=== PATIENT | male | born 1980 | race American Indian/Alaskan Native ===

== ENCOUNTER 2016-05-23 12:21 | Emergency (ER) | payer SELFPAY ==
[2016-05-23 12:37] VITALS: BP 115/77
[2016-05-23 13:01] LABS: Basophils % (Auto) 0.7 % (0.0-1.8); Eosinophils % (Auto) 1.6 % (0.0-4.3); Hematocrit 42.5 % (35.5-45.6); Hemoglobin 13.8 gm/dl (11.8-15.2); Mean Corpuscular HGB Conc 32 % (32-34); Mean Corpuscular Hemoglobin 29 pg (28-32); Mean Corpuscular Volume 90 fl (84-94); Platelet Count 250 K/mm3 (140-440); Red Blood Count 4.74 M/mm3 (3.65-5.03); Red Cell Distribution Width 13.6 % (13.2-15.2); White Blood Count 3.4 K/mm3 (4.5-11.0)
[2016-05-23 13:19] LABS: Anion Gap 15 mmol/L; BUN/Creatinine Ratio 8.88; Blood Urea Nitrogen 8 mg/dL (9-20); Calcium 8.9 mg/dL (8.4-10.2); Carbon Dioxide 27 mmol/L (22-30); Chloride 103.2 mmol/L (98-107); Glucose 85 mg/dL (75-100); Potassium 4.4 mmol/L (3.6-5.0); Sodium 141 mmol/L (137-145)
--- NOTE | 2016-05-24 15:28 | ED Elopement Review ---
ED Pt Elopement review - Results review Lab results: Laboratory Tests 05/23/16 05/23/16 12:47 12:47 WBC 3.4 L RBC 4.74 Hgb 13.8 Hct 42.5 MCV 90 MCH 29 MCHC 32 RDW 13.6 Plt Count 250 Lymph % (Auto) 46.1 H [place] % (Auto) 6.3 Eos % (Auto) 1.6 Baso % (Auto) 0.7 Lymph # 1.6 [place] # 0.2 Eos # 0.1 Baso # 0.0 Seg Neutrophils % 45.3 Seg Neutrophils # 1.5 L Sodium 141 Potassium 4.4 Chloride 103.2 Carbon Dioxide 27 Anion Gap 15 BUN 8 L Creatinine 0.9 Estimated GFR > 60 BUN/Creatinine Ratio 8.88 Glucose 85 Calcium 8.9 Troponin T < 0.010 - Call Back decision Pt Call Back Decision: No action required
== END 2016-05-23 16:30 | disposition left against medical advice (07) ==
LOC: ED 12:21
DX: R07.89 Other chest pain (principal); M25.512 Pain in left shoulder; M54.9 Dorsalgia, unspecified; Z53.21 Procedure and treatment not carried out due to patient leaving prior to being seen by health care provider
CPT/HCPCS: 36415; 80048; 84484; 85025; 93005; 93010

== ENCOUNTER 2017-05-15 14:32 | Emergency (ER) | payer SELFPAY ==
[2017-05-15 14:37] VITALS: BP 116/66
== END 2017-05-15 17:50 | disposition home or self-care (01) ==
LOC: ED 14:32
DX: J00 Acute nasopharyngitis [common cold] (principal); Z53.21 Procedure and treatment not carried out due to patient leaving prior to being seen by health care provider

== ENCOUNTER 2018-01-16 10:48 | Emergency (ER) | payer SELFPAY ==
[2018-01-16 11:34] VITALS: BP 101/74
--- NOTE | 2018-01-16 12:22 | Emergency Department Report ---
ED ENT HPI - General Chief complaint: Sore Throat Stated complaint: STD CHECK/SWOLLEN GLANDS Source: patient Mode of arrival: Ambulatory Limitations: No Limitations - History of Present Illness Initial comments: This is a 37-year-old -[place] male who presents for evaluation of possible oral STD exposure. Patient states he had oral intercourse 3-4 times with a new partner for 2 months. He is now complaining of sore throat and swollen glands. Patient states partner recently diagnosed with gonorrhea and chlamydia he is concerned of possibly having oral gonorrhea. Denies difficulty swallowing, thrush, penile discharge, testicular pain or swelling, frequency, urgency and dysuria. MD complaint: sore throat Onset/Timin -: week(s) Location: throat Severity: moderate Severity scale (0 -10): 5 Quality: other (throbbing) Consistency: constant Improves with: none Worsens with: swallowing, eating Associated Symptoms: pain with swallowing, sore throat - Related Data Home Medications Medication Instructions Recorded Confirmed Last Taken No Known Home Medications [No 05/23/16 05/23/16 Unknown Reported Home Medications] Allergies Allergy/AdvReac Type Severity Reaction Status Date / Time No Known Allergies Allergy Verified 05/23/16 12:31 ED Dental HPI - General Chief complaint: Sore Throat Stated complaint: STD CHECK/SWOLLEN GLANDS Source: patient Mode of arrival: Ambulatory Limitations: No Limitations - Related Data Home Medications Medication Instructions Recorded Confirmed Last Taken No Known Home Medications [No 05/23/16 05/23/16 Unknown Reported Home Medications] Allergies Allergy/AdvReac Type Severity Reaction Status Date / Time No Known Allergies Allergy Verified 05/23/16 12:31 ED Review of Systems ROS: Stated complaint: STD CHECK/SWOLLEN GLANDS Other details as noted in HPI Constitutional: denies: chills, fever ENT: throat pain. denies: ear pain, dental pain, hearing loss, epistaxis, congestion Respiratory: denies: cough, shortness of breath, wheezing Cardiovascular: denies: chest pain, palpitations Gastrointestinal: denies: abdominal pain, nausea, diarrhea Skin: denies: rash, lesions Neurological: denies: headache, weakness, paresthesias Psychiatric: denies: anxiety, depression ED Past Medical Hx - Past Medical History Additional medical history: Leukopenia, afib - Surgical History Past Surgical History?: No - Social History Smoking Status: Current Every Day Smoker Substance Use Type: Marijuana - Medications Home Medications: Home Medications Medication Instructions Recorded Confirmed Last Taken Type No Known Home Medications [No 05/23/16 05/23/16 Unknown History Reported Home Medications] ED Physical Exam - General Limitations: No Limitations General appearance: alert, in no apparent distress - ENT ENT exam: Present: mucous membranes moist, TM's normal bilaterally, normal external ear exam. Absent: normal orophraynx (erythematous posterior pharynx, uvula midline, no exudate or tonsillar enlargement) - Neck Neck exam: Present: normal inspection - Respiratory Respiratory exam: Present: normal lung sounds bilaterally. Absent: respiratory distress - Cardiovascular Cardiovascular Exam: Present: regular rate, normal rhythm. Absent: systolic murmur, diastolic murmur, rubs, gallop - GI/Abdominal GI/Abdominal exam: Present: soft, normal bowel sounds - Neurological Exam Neurological exam: Present: alert, oriented X3 - Psychiatric Psychiatric exam: Present: normal affect, normal mood - Skin Skin exam: Present: warm, dry, intact, normal color. Absent: rash ED Course Vital Signs 01/16/18 11:25 Temperature 98.7 F Pulse Rate 66 Respiratory 16 Rate Blood Pressure 101/74 Blood Pressure 101/74 [Right] O2 Sat by Pulse 98 Oximetry ED Medical Decision Making - Medical Decision Making This is a 37-year-old -[place] male who presents with sore throat for 1 week. Recent exposure to gonorrhea and chlamydia. Patient was examined by me. Vitals are stable and in no acute distress. No labs ordered. Empirically treated with Rocephin 250 mg IM and azithromycin 1 g by mouth. Discharged home in stable condition. Discussed prevention options. F/U with PCP or Health Department. Critical care attestation.: If time is entered above; I have spent that time in minutes in the direct care of this critically ill patient, excluding procedure time. ED Disposition Clinical Impression: STD exposure Disposition: DC-01 TO HOME OR SELFCARE Is pt being admited?: No Does the pt Need Aspirin: No Condition: Stable Instructions: Sexually Transmitted Diseases (ED), Safe Sex (ED) Additional Instructions: Avoid drinking alcohol for 24 hours. Continue safe sexual intercourse. Follow up with Primary Care Provider or health department. Referrals: [facility] [Outside] - 3-5 Days [facility] [Outside] - 3-5 Days [facility] [Outside] - 3-5 Days Time of Disposition: 12:26 Print Language: MALTESE
[2018-01-16] MEDS ORDERED: XYLOCAINE 1% MPF 5 mL INFILTRATI ONE (12:26)
[2018-01-16] MEDS ORDERED: ZITHROMAX PO ONE (12:26)
[2018-01-16] MEDS ORDERED: ROCEPHIN IM ONE (12:26)
== END 2018-01-16 12:38 | disposition home or self-care (01) ==
LOC: ED 10:48
DX: Z20.2 Contact with and (suspected) exposure to infections with a predominantly sexual mode of transmission (principal); F17.200 Nicotine dependence, unspecified, uncomplicated; F12.10 Cannabis abuse, uncomplicated; I48.91 Unspecified atrial fibrillation
CPT/HCPCS: 96372; 99282; J0696

== ENCOUNTER 2018-01-30 12:06 | Emergency (ER) | payer SELFPAY ==
[2018-01-30 12:15] VITALS: BP 117/68
== END 2018-01-30 18:47 ==
LOC: ED 12:06
DX: J02.9 Acute pharyngitis, unspecified (principal); Z53.21 Procedure and treatment not carried out due to patient leaving prior to being seen by health care provider

== ENCOUNTER 2021-03-10 16:22 | Emergency (ER) | payer SELFPAY ==
[2021-03-10 16:34] VITALS: BP 137/80
--- NOTE | 2021-03-10 17:11 | Emergency Department Report ---
ED General Adult HPI - General Chief complaint: Sore Throat Stated complaint: SORE THROAT Time Seen by Provider: 03/10/21 16:31 Source: patient Mode of arrival: Ambulatory Limitations: No Limitations - History of Present Illness Initial comments: 40-year-old -[place] male patient presents with complaints of mild throat irritation and hoarseness for the past 2 days. Patient states his symptoms began after having an argument with his and yelling a great deal. He states the pain is very minimal and feels more like irritation and scratch iness. He states he is more concerned with the hoarseness of his voice. He has not tried any OTC medications for his symptoms. He also denies any cough, fever/chills/sweats, rash, chest pain, shortness of breath, or loss of taste or smell. Severity scale (0 -10): 10 - Related Data Previous Rx's Medication Instructions Recorded Last Taken Type Phenazopyridine [Pyridium] 200 mg PO TID #6 tab 01/21/18 Unknown Rx Naproxen [Naprosyn] 500 mg PO BID PRN #20 tablet 02/06/18 Unknown Rx Famotidine 20 mg PO BID 30 Days #60 tablet 03/23/18 Unknown Rx Acetaminophen [Non-Aspirin Pain 1,000 mg PO QID PRN #20 tablet 03/10/21 Unknown Rx Relief] Nystas/Diphen/Xyl Visc/Mylanta 10 ml MM Q6H PRN 7 Days #120 ml 03/10/21 Unknown Rx [Magic Mouthwash] Allergies Allergy/AdvReac Type Severity Reaction Status Date / Time No Known Allergies Allergy Verified 03/23/18 10:49 ED Review of Systems ROS: Stated complaint: SORE THROAT Other details as noted in HPI Constitutional: denies: chills, diaphoresis, fever, malaise, weakness ENT: throat pain Cardiovascular: denies: chest pain Gastrointestinal: denies: abdominal pain, nausea, vomiting Genitourinary: denies: urgency, dysuria, frequency, hematuria, discharge, testicular pain, testicular mass Musculoskeletal: denies: back pain Skin: denies: rash, lesions Neurological: denies: numbness ED Past Medical Hx - Past Medical History Previous Medical History?: Yes Additional medical history: Leukopenia, afib - Surgical History Past Surgical History?: No - Social History Smoking Status: Never Smoker Substance Use Type: Marijuana - Medications Home Medications: Home Medications Medication Instructions Recorded Confirmed Last Taken Type Phenazopyridine [Pyridium] 200 mg PO TID #6 tab 01/21/18 Unknown Rx Naproxen [Naprosyn] 500 mg PO BID PRN #20 tablet 02/06/18 Unknown Rx Famotidine 20 mg PO BID 30 Days #60 tablet 03/23/18 Unknown Rx Acetaminophen [Non-Aspirin Pain 1,000 mg PO QID PRN #20 tablet 03/10/21 Unknown Rx Relief] Nystas/Diphen/Xyl Visc/Mylanta 10 ml MM Q6H PRN 7 Days #120 ml 03/10/21 Unknown Rx [Magic Mouthwash] ED Physical Exam - General Limitations: No Limitations General appearance: alert, in no apparent distress - Head Head exam: Present: atraumatic, normocephalic - Eye Eye exam: Present: normal appearance. Absent: scleral icterus - ENT ENT exam: Present: normal exam, normal orophraynx - Expanded ENT Exam Expanded Mouth exam: Absent: drooling, trismus, muffled voice Throat exam: Positive: normal inspection - Neck Neck exam: Absent: tenderness, lymphadenopathy - Respiratory Respiratory exam: Absent: respiratory distress - Cardiovascular Cardiovascular Exam: Present: regular rate - Neurological Exam Neurological exam: Present: alert, oriented X3 - Psychiatric Psychiatric exam: Present: normal affect, normal mood - Skin Skin exam: Present: warm, dry, intact, normal color. Absent: rash ED Course Vital Signs 03/10/21 16:33 Temperature 99.4 F Pulse Rate 90 Respiratory 18 Rate Blood Pressure 137/80 [Right] O2 Sat by Pulse 98 Oximetry ED Medical Decision Making - Medical Decision Making 40-year-old -[place] male patient presents with complaints of mild throat irritation and hoarseness for the past 2 days. Patient states his symptoms began after having an argument with his and yelling a great deal. He states the pain is very minimal and feels more like irritation and scratchiness. He states he is more concerned with the hoarseness of his voice. He has not tried any OTC medications for his symptoms. He also denies any cough, fever/chills/sweats, rash, chest pain, shortness of breath, or loss of taste or smell. Throat is normal on exam. Will treat symptomatically with Magic mouthwash, ibuprofen, and honey and tea as needed. Also recommend voice rest. He is well- appearing, his vitals are within normal limits, he is stable for discharge home. Discussed in detail signs and symptoms that should prompt immediate return to the ED with patient verbalizes understanding peer Critical care attestation.: If time is entered above; I have spent that time in minutes in the direct care of this critically ill patient, excluding procedure time. ED Disposition Clinical Impression: Sore throat, Hoarseness of voice Disposition: 01 HOME / SELF CARE / HOMELESS Is pt being admited?: No Condition: Stable Instructions: Sore Throat, [id number], Hoarseness Prescriptions: Nystas/Diphen/Xyl Visc/Mylanta [Magic Mouthwash] 10 ml MM Q6H PRN 7 Days #120 ml PRN Reason: Sore Throat Acetaminophen [Non-Aspirin Pain Relief] 1,000 mg PO QID PRN #20 tablet PRN Reason: pain Referrals: [facility] [Provider Group] - as needed PRIMARY CARE, [Primary Care Provider] - as needed Forms: Work/School Release Form(ED)
== END 2021-03-10 17:17 | disposition home or self-care (01) ==
LOC: ED 16:22
DX: J02.9 Acute pharyngitis, unspecified (principal); F12.10 Cannabis abuse, uncomplicated
CPT/HCPCS: 99282